=== PATIENT | female | born 1990 | race African-American/Black ===

== ENCOUNTER 2024-06-03 08:43 | Outpatient (CLI) | payer OTHER, SELFPAY ==
--- NOTE | ~2024-06-03 | US_ITS ---
EXAMINATION: US pelvic complete w TV INDICATION: Menorrhagia Comparison:Menorrhagia TECHNIQUE: Multiple transabdominal and endovaginal sonographic images of the pelvis performed. FINDINGS: The uterus measures 10.3 x 5.3 x 6.2 cm. There is an IUD present within the endometrium. Th e endometrial complex measures 8 mm. The right ovary measures 3.1 x 1.8 x 2.9 cm and the left ovary measures 2.9 x 2.5 x 3.6 cm. There is a 2.3 cm left ovarian cyst. There are small follicles in each ovary. Normal doppler signal in both ov ce. There is no free fluid in the pelvis. There are no abnormal masses seen on either side. IMPRESSION: 1. Left ovarian cyst measuring 2.3 cm. Reviewed, dictated and finalized at [facility]. [facility]
== END 2024-06-03 08:44 | disposition home or self-care (01) ==
LOC: MICIMG 08:44
PROVIDERS: PCP Student in an Organized Health Care Education/Training Program; Visit Provider Student in an Organized Health Care Education/Training Program
DX: N92.6 Irregular menstruation, unspecified (principal); N83.202 Unspecified ovarian cyst, left side
CPT/HCPCS: 76830; 76856

== ENCOUNTER 2024-09-30 10:59 | Outpatient (CLI) | payer OTHER, SELFPAY ==
--- NOTE | ~2024-09-30 | US_ITS ---
Pelvic ultrasound. Clinical History: Excessive and frequent menstruation Technique: Realtime transabdominal and transvaginal scanning of the pelvis was performed. Color flow Doppler and Doppler spectral analysis were performed. Findings: The uterus is anteverted. The endometrial stripe has a thickness of 10 mm. IUD in satisfac tory position. No focal mass is identified. The right ovary measures 3.3 x 1.9 x 3.9 cm. No significant right ovarian or adnexal mass is seen. The left ovary measures 3.9 x 2.0 x 3.5 cm. No significant left ovarian or adnexal mass is seen. There is no evidence of free fluid in the cul de sac. Impression: IUD in place. No significant abnormality seen otherwise. Reviewed, dictated and finalized at [facility]. Impression: IUD in place. No significant abnormality seen otherwise.
== END 2024-09-30 11:00 | disposition home or self-care (01) ==
LOC: MICIMG 11:00
PROVIDERS: PCP Student in an Organized Health Care Education/Training Program; Visit Provider Student in an Organized Health Care Education/Training Program
DX: N92.1 Excessive and frequent menstruation with irregular cycle (principal); Z97.5 Presence of (intrauterine) contraceptive device
CPT/HCPCS: 76830; 76856